=== PATIENT | female | born 1960 | race Caucasian/White ===

== ENCOUNTER 2018-01-03 21:08 | Emergency (ER) | payer BC ==
[~2018-01-03] VITALS: Ht 160 cm; Wt 78.0 kg
[~2018-01-03 21:08] MED LIST changes: -ATROPINE SULFATE 0.1 MG/ML 5ML SYR IV PRN; -DEXAMETHASONE SOD INJ 4 MG/ML VIAL ONE; -EpHEDrine SULFATE INJ 50 MG/ML AMP IV PRN; -FENTANYL CITRATE INJ 50 MCG/1 ML 2 ML VIAL IV PRN; -FENTANYL CITRATE INJ 50 MCG/1 ML 2 ML VIAL ONE; -KETOROLAC TROMETHAMINE 30 MG/ML VIAL ONE; -LIDOCAINE HCL 2% 2 ML VIAL (20MG/ML) ONE; -MIDAZOLAM HCL 1 MG/ML 2ML VIAL ONE; -ONDA4TAB65 PO; -ONDANSETRON INJ 2 MG/ML 2 ML VIAL ONE; -PROPOFOL IV EMULSION 10 MG/ML 20 ML VIAL ONE
[2018-01-03 21:10] VITALS: TEMP 36.6; Ht 160 cm; Wt 78.0 kg
[2018-01-03] MEDS ORDERED: TAMS0.4C38 PO (21:28)
[2018-01-03] MEDS ORDERED: OXYC1CAP5 PO (21:28)
[2018-01-03] MEDS ORDERED: MoRPHine SULFATE 4 MG/ML 1 ML CARP\\VIAL IV STA (21:37)
[2018-01-03] MEDS ORDERED: ONDANSETRON INJ 2 MG/ML 2 ML VIAL IV STA (21:37)
[2018-01-03] MEDS ORDERED: SODIUM CHLORIDE 0.9% 1000ML 1,000 ML IV STA (21:37)
[2018-01-03] MEDS ORDERED: KETOROLAC TROMETHAMINE 30 MG/ML VIAL IV STA (21:37)
--- NOTE | 2018-01-03 21:51 | EMERGENCY ROOM VISIT NOTE ---
History Report prepared by Magali: Parviz Quick Under the Supervision of: Dr. Stas Greco M.D. First contact with patient: 21:22 Chief Complaint: VOMITING Stated Complaint: NAUSEA, VOMITING, POST KIDNEY STONE PROCEDURE Nursing Triage Summary: Vomiting starting 1500, doesn't know how many times. Left kidney pain. Very tired. Had lithotripsy this morning at 0700. History of Present Illness The patient is a 57 year old white female with a past medical history of kidney stones and GERD who presents to the ED with a cc of constant left-sided flank pain beginning 6 hours ago. Patient states that she had left-side lithotripsy with Dr. Meléndez of urology done this morning. Positive symptoms include nausea , vomiting, and chills. Patient states that her last bowel movement was today. Patient states that she could not take her fever with a thermometer because it "causes her to vomit". Patient denies alcohol and drug use. Patient denies any recent trauma or travel. She denies being around anyone else that has been sick. Negative symptoms include coughs and urinary symptoms. Source of History: patient Onset: 6 hours ago Position: other (Left-sided flank) Timing: constant Modifying Factors (Relieving): other (None) Associated Symptoms: + chills, + nausea, + vomiting, No cough, No urinary symptoms Review of Systems See HPI for pertinent positives and negatives. A total of ten systems were reviewed and were otherwise negative. Past Medical & Surgical Medical Problems: (1) Anxiety State Nos (2) Depressive Disorder Nec (3) Esophageal Reflux Family History Diabetes mellitus Social History Smoking Status: Never Smoker Housing Status: lives with family Current/Historical Medications Scheduled Aspirin (Aspirin Chewable), 81 MG PO DAILY Atorvastatin (Lipitor), 40 MG PO QPM Omeprazole (Prilosec), 20 MG PO QAM Tamsulosin Hcl (Flomax), 0.4 MG PO DAILY Scheduled PRN Ondansetron Hcl (Zofran), 1 TAB PO Q6H PRN for Nausea Oxycodone Hcl (Oxycodone Hcl), 5 MG PO QID PRN for Pain Allergies Coded Allergies: No Known Allergies (Unverified , 01/03/18) Physical Exam Vital Signs Date Time Temp Pulse Resp B/P (MAP) Pulse Ox O2 Delivery O2 Flow Rate FiO2 5/12/18 00:00 148/90 01/03/18 23:48 72 20 98 01/03/18 23:30 145/79 01/03/18 23:18 75 16 99 01/03/18 23:00 141/91 01/03/18 22:54 141/73 01/03/18 22:48 60 12 99 01/03/18 22:43 56 18 100 01/03/18 22:13 74 18 92 01/03/18 22:08 82 18 01/03/18 21:38 65 100 Room Air 01/03/18 21:31 132/64 01/03/18 21:28 142/68 01/03/18 21:10 36.6 65 18 159/95 100 Room Air Physical Exam GENERAL: Awake, alert, ill-appearing, NAD HENT: Normocephalic, atraumatic. EYES: Normal conjunctiva. Sclera non-icteric. PERRL. No anisocoria. NECK: Supple. No nuchal rigidity. FROM. RESPIRATORY: CTAB, no rhonchi, wheezing, crackles CARDIAC: RRR, no MRG ABDOMEN: Soft, BS+, epigastric LUQ pain, left-sided flank pain, no lower abdominal pain, non-peritonitic MSK: No chest wall TTP, no LE edema NEURO: GCS 15, CN 2-12 intact, moves all 4s on command SKIN: No rash or jaundice noted. Medical Decision & Procedures ER Provider Diagnostic Interpretation: Radiology results as stated below per my review and radiologist interpretation: CHEST ONE VIEW PORTABLE HISTORY: Generalized abdominal pain. COMPARISON: Outside hospital abdomen CT 12/02/2017. FINDINGS: Moderate hiatus hernia, unchanged. The heart is top normal in size. Left basilar linear densities consistent with subsegmental atelectasis or scarring. The lungs are otherwise clear. No pleural effusions. No pneumothorax. IMPRESSION: No acute process. Electronically signed by: Giancarlo Vanessa M.D. 01/03/2018 10:18 PM ABDOMEN AND PELVIS CT WITHOUT CONTRAST CT DOSE: 770.62 mGy.cm HISTORY: Left-sided acute abdominal pain TECHNIQUE: Multiaxial CT images of the abdomen and pelvis were performed without contrast. A dose lowering technique was utilized adhering to the principles of ALARA. COMPARISON STUDY: Outside hospital abdominal CT 12/02/2017. FINDINGS: Small fat-containing left-sided Bochdalek hernia. A few bibasilar linear densities suggesting subsegmental atelectasis. Moderate hiatus hernia. No pneumoperitoneum. No pneumatosis. No acute fractures within the visualized osseous structures. The unenhanced liver, gallbladder, pancreas, spleen, and adrenal glands are unremarkable. There may be a punctate stone within the lower pole the right kidney. Multiple left renal calculi are again noted. Dominant stone within the lower pole measures 13 mm. A 4.6 cm hypodense lesion within the lower pole the left kidney remains unchanged. Stable hypodense lesion within the lower pole the right kidney which measures 3.3 cm. These renal lesions are incompletely characterized on this noncontrast study but favor cysts. There is mild left perinephric edema which is new from the prior study. There is also left periureteral edema. No bladder wall thickening. No right-sided hydronephrosis. There are multiple clustered stones seen within the left distal ureter starting at the level of the left iliac vessels and extending into the left ureterovesical junction. This results in moderate left hydronephrosis. No retroperitoneal lymphadenopathy. Normal caliber abdominal aorta. The uterus and adnexa are unremarkable. Suboptimal evaluation for bowel pathology due to the lack of intravenous and oral contrast. However, there is no definite bowel wall thickening or obstruction. Normal appendix. IMPRESSION: 1. Multiple clustered stones seen throughout the distal left ureter to the level of the left ureterovesical junction resulting in moderate left hydronephrosis. 2. Bilateral nephrolithiasis. 3. Moderate hiatus hernia. 4. Stable bilateral renal hypodense lesions. Electronically signed by: Giancarlo Vanessa M.D. 01/03/2018 11:15 PM Laboratory Results 01/03/18 21:50 Red Blood Count 4.76, Mean Corpuscular Volume 84.9, Mean Corpuscular Hemoglobin 28.8, Mean Corpuscular Hemoglobin Concent 33.9, Mean Platelet Volume 10.4, Neutrophils (%) (Auto) 83.8, Lymphocytes (%) (Auto) 8.9, Monocytes (%) (Auto) 6.9, Eosinophils (%) (Auto) 0.0, Basophils (%) (Auto) 0.1, Neutrophils # (Auto) 9.69, Lymphocytes # (Auto) 1.03, Monocytes # (Auto) 0.80, Eosinophils # (Auto) 0.00, Basophils # (Auto) 0.01 01/03/18 21:50 Test 01/03/18 21:25 01/03/18 21:50 Urine Color ORANGE Urine Appearance CLOUDY (CLEAR) Urine pH >= 9.0 (4.5-7.5) Urine Specific Advance 1.017 (1.000-1.030) Urine Protein 1+ (NEG) Urine Glucose (UA) NEG (NEG) Urine Ketones NEG (NEG) Urine Occult Blood 3+ (NEG) Urine Nitrite NEG (NEG) Urine Bilirubin NEG (NEG) Urine Urobilinogen NEG (NEG) Urine Leukocyte Esterase TRACE (NEG) Urine WBC (Auto) 10-30 /hpf (0-5) Urine RBC (Auto) >30 /hpf (0-4) Urine Hyaline Casts (Auto) 1-5 /lpf (0-5) Urine Epithelial Cells (Auto) 10-20 /lpf (0-5) Urine Bacteria (Auto) NEG (NEG) Urine Test NEG (NEG) White Blood Count 11.56 K/uL (4.8-10.8) Red Blood Count 4.76 M/uL (4.2-5.4) Hemoglobin 13.7 g/dL (12.0-16.0) Hematocrit 40.4 % (37-47) Mean Corpuscular Volume 84.9 fL (80-100) Mean Corpuscular Hemoglobin 28.8 pg (25-34) Mean Corpuscular Hemoglobin Concent 33.9 g/dl (32-36) Platelet Count 236 K/uL (130-400) Mean Platelet Volume 10.4 fL (7.4-10.4) Neutrophils (%) (Auto) 83.8 % Lymphocytes (%) (Auto) 8.9 % Monocytes (%) (Auto) 6.9 % Eosinophils (%) (Auto) 0.0 % Basophils (%) (Auto) 0.1 % Neutrophils # (Auto) 9.69 K/uL (1.4-6.5) Lymphocytes # (Auto) 1.03 K/uL (1.2-3.4) Monocytes # (Auto) 0.80 K/uL (0.11-0.59) Eosinophils # (Auto) 0.00 K/uL (0-0.5) Basophils # (Auto) 0.01 K/uL (0-0.2) RDW Standard Deviation 40.7 fL (36.4-46.3) RDW Coefficient of Variation 13.1 % (11.5-14.5) Immature Granulocyte % (Auto) 0.3 % Immature Granulocyte # (Auto) 0.03 K/uL (0.00-0.02) Anion Gap 9.0 mmol/L (3-11) Est Creatinine Clear Calc Drug Dose 58.7 ml/min Estimated GFR () 67.7 Estimated GFR (Non- 58.4 BUN/Creatinine Ratio 16.7 (10-20) Calcium Level 9.0 mg/dl (8.5-10.1) Total Bilirubin 0.6 mg/dl (0.2-1) Direct Bilirubin 0.2 mg/dl (0-0.2) Aspartate Amino Transf (AST/SGOT) 29 U/L (15-37) Alanine Aminotransferase (ALT/SGPT) 26 U/L (12-78) Alkaline Phosphatase 88 U/L (45-117) Total Protein 7.2 gm/dl (6.4-8.2) Albumin 4.0 gm/dl (3.4-5.0) Lipase 118 U/L (73-393) Laboratory results reviewed by me Medications Administered Medications (Trade) Dose Ordered Sig/Radha Route Start Time Stop Time Status Last Admin Dose Admin Sodium Chloride 1,000 ml @ 999 mls/hr Q1H1M STAT IV 01/03/18 21:37 01/03/18 22:37 DC 01/03/18 21:56 999 MLS/HR Ondansetron HCl (Zofran Inj) 4 mg NOW STAT IV 01/03/18 21:37 01/03/18 21:39 DC 01/03/18 21:56 4 MG Ketorolac Tromethamine (Toradol Inj) 30 mg NOW STAT IV 01/03/18 21:37 01/03/18 21:39 DC 01/03/18 21:59 30 MG Morphine Sulfate (MoRPHine SULFATE INJ) 4 mg NOW STAT IV 01/03/18 21:37 01/03/18 21:39 DC 01/03/18 22:00 4 MG Ondansetron HCl (ZOFRAN ODT 4MG Home Pack) 1 homepack UD ONCE PO 01/03/18 23:45 01/03/18 23:46 DC 01/04/18 00:12 1 HOMEPACK ECG Per My Interpretation Indication: vomiting Rate (beats per minute): 52 Rhythm: sinus bradycardia Findings: other (Normal axis and normal interval, no obvious STs changes or TWI ) ED Course 2121: The patient was evaluated in room B4. A complete history and physical exam was performed. 8: I reevaluated the patient. Discussed results and discharge instructions. She verbalized understanding and agreement. The patient is ready for discharge. Medical Decision Nursing notes reviewed. Ancillary studies and prior records reviewed. The patient is a 57 year old white female with a past medical history of kidney stones and GERD who presents to the ED with a cc of constant left-sided flank pain beginning 6 hours ago. The patient's presentation and history were concerning for renal colic, appendicitis, diverticulitis, mesenteric ischemia, aortic pathology, infections , inflammatory bowel disease, PUD, biliary pathology, UTI, as well as others were entertained. Patient was seen and evaluated the bedside. Patient did have a recent lithotripsy completed this morning with Dr. Meléndez. The patient was complaining of her amount of nausea and left-sided flank pain. Patient did have some chills but no true fever. Patient has not been able to keep anything down. Patient denies any recent antibiotic use, travel, sick contacts, ingestions, or stream or well water. Patient did have blood work completed along with urinalysis and CT of the abdomen pelvis. Patient CT shows that she does have multiple small ureteral calculi with obstructive changes are this is likely chronic as the patient required lithotripsy. The patient has normal kidney function patient does not have an elevated white blood cell count. Patient's urinalysis is negative for infection. She does have hematuria which is consistent with the patient's kidney stones. Patient was told of the results and the patient was feeling much improved. Patient was told to consider a bland diet and avoid spicy and citrus. Patient was told to take her pain medications with foods. Patient tolerated p.o. Patient was told to follow-up with urology as needed. Patient was given strict follow-up, discharge, and return precautions. All questions were answered. Patient was deemed suitable for outpatient follow-up at this time. Patient agreed with the plan of care and was safely discharged home. Medication Reconcilliation Current Medication List: was personally reviewed by me Blood Pressure Screening Patient's blood pressure: Normal blood pressure Blood pressure disposition: Did not require urgent referral Impression Primary Impression: Nausea & vomiting Additional Impression: H/O renal calculi Scribe Attestation The scribe's documentation has been prepared under my direction and personally reviewed by me in its entirety. I confirm that the note above accurately reflects all work, treatment, procedures, and medical decision making performed by me. Departure Information Dispostion Home / Self-Care Prescriptions Ondansetron Hcl (ZOFRAN) 4 Mg Tab 1 TAB PO Q6H Y for Nausea, #10 TAB 1 Refill Prov: Stas Greco M.D. 01/03/18 Referrals Rhonda Horvath D.O. (PCP) Patient Instructions ED Nausea Vomiting, My [facility] Additional Instructions Please return to the emergency department if you have worsening or recurrent symptoms not amenable to at-home treatment. Please call for a follow-up appointment with her primary care physician. Please take your medications as prescribed. If you have other concerns and/or complaints please feel free to also call your primary care physician's office or return the ED for further evaluation, management, and treatment. Consider a bland diet. Please avoid spicy and citrus. Consider taking Pepcid 20 mg twice daily. Take her pain medication with food. Please follow-up with your urologist as needed. You may take 800 mg Ibuprofen every 6 hours as needed for pain/fever with food unless told by your physician not to take NSAIDs. You may take tylenol 1000 mg every 6 hours as needed for pain/fever unless told by your physician to not take it or have liver problems. You may take motrin and tylenol separately or at the same time. Take your medications as prescribed. You have been examined and treated today on an emergency basis only. This is not a substitute for, or an effort to provide, complete comprehensive medical care. It is impossible to recognize and treat all injuries or illnesses in a single emergency department visit. It is therefore important that you follow up closely with [facility], your PCP, and/or your specialist(s). Call as soon as possible for an appointment. Thank you for your time and consideration. I look forward to speaking with you again soon. Please don't hesitate to call us if you have any questions. Problem Qualifiers Primary Impression: Nausea & vomiting Vomiting type: unspecified Vomiting Intractability: non-intractable Qualified Codes: R11.2 - Nausea with vomiting, unspecified
[2018-01-03 22:04] LABS: BASO % 0.1 %; BASO ABS # 0.01 K/uL (0-0.2); HEMATOCRIT 40.4 % (37-47); HEMOGLOBIN 13.7 g/dL (12.0-16.0); IG# 0.03 K/uL (0.00-0.02); LYMPH % 8.9 %; LYMPH ABS # 1.03 K/uL (1.2-3.4); MEAN CELL VOLUME 84.9 fL (80-100); MEAN CORPUSCULAR HEMOGLOBIN 28.8 pg (25-34); MEAN CORPUSCULAR HGB CONC 33.9 g/dl (32-36); MEAN PLATELET VOLUME 10.4 fL (7.4-10.4); MONO % 6.9 %; NEUT % 83.8 %; NEUT ABS # 9.69 K/uL (1.4-6.5); PLATELET COUNT 236 K/uL (130-400); RED CELL DISTRIBUTION WIDTH CV 13.1 % (11.5-14.5); RED CELL DISTRIBUTION WIDTH SD 40.7 fL (36.4-46.3); WHITE BLOOD COUNT 11.56 K/uL (4.8-10.8)
--- NOTE | 2018-01-03 22:19 | DIAGNOSTIC IMAGING REPORT ---
CHEST ONE VIEW PORTABLE HISTORY: Generalized abdominal pain. COMPARISON: Outside hospital abdomen CT 12/02/2017. FINDINGS: Moderate hiatus hernia, unchanged. The heart is top normal in size. Left basilar linear densities consistent with subsegmental atelectasis or scarring. The lungs are otherwise clear. No pleural effusions. No pneumothorax. IMPRESSION: No acute process. Electronically signed by: Giancarlo Vanessa M.D. 01/03/2018 10:18 PM Dictated Date/Time: 01/03/2018 10:16 PM
[2018-01-03 22:35] LABS: CREATININE 1.07 mg/dl (0.60-1.20); POTASSIUM 3.7 mmol/L (3.5-5.1)
[2018-01-03 22:38] LABS: TOTAL PROTEIN 7.2 gm/dl (6.4-8.2)
--- NOTE | 2018-01-03 23:16 | DIAGNOSTIC IMAGING REPORT ---
ABDOMEN AND PELVIS CT WITHOUT CONTRAST CT DOSE: 770.62 mGy.cm HISTORY: Left-sided acute abdominal pain TECHNIQUE: Multiaxial CT images of the abdomen and pelvis were performed without contrast. A dose lowering technique was utilized adhering to the principles of ALARA. COMPARISON STUDY: Outside hospital abdominal CT 12/02/2017. FINDINGS: Small fat-containing left-sided Bochdalek hernia. A few bibasilar linear densities suggesting subsegmental atelectasis. Moderate hiatus hernia. No pneumoperitoneum. No pneumatosis. No acute fractures within the visualized osseous structures. The unenhanced liver, gallbladder, pancreas, spleen, and adrenal glands are unremarkable. There may be a punctate stone within the lower pole the right kidney. Multiple left renal calculi are again noted. Dominant stone within the lower pole measures 13 mm. A 4.6 cm hypodense lesion within the lower pole the left kidney remains unchanged. Stable hypodense lesion within the lower pole the right kidney which measures 3.3 cm. These renal lesions are incompletely characterized on this noncontrast study but favor cysts. There is mild left perinephric edema which is new from the prior study. There is also left periureteral edema. No bladder wall thickening. No right-sided hydronephrosis. There are multiple clustered stones seen within the left distal ureter starting at the level of the left iliac vessels and extending into the left ureterovesical junction. This results in moderate left hydronephrosis. No retroperitoneal lymphadenopathy. Normal caliber abdominal aorta. The uterus and adnexa are unremarkable. Suboptimal evaluation for bowel pathology due to the lack of intravenous and oral contrast. However, there is no definite bowel wall thickening or obstruction. Normal appendix. IMPRESSION: 1. Multiple clustered stones seen throughout the distal left ureter to the level of the left ureterovesical junction resulting in moderate left hydronephrosis. 2. Bilateral nephrolithiasis. 3. Moderate hiatus hernia. 4. Stable bilateral renal hypodense lesions. Electronically signed by: Giancarlo Vanessa M.D. 01/03/2018 11:15 PM Dictated Date/Time: 01/03/2018 11:06 PM
[2018-01-03] MEDS ORDERED: ONDA4TAB65 PO (23:40)
[2018-01-03] MEDS ORDERED: ONDANSETRON HOME PACK 4MG OD TAB PO ONE (23:45)
[2018-01-03 23:48] VITALS: PULSE 72; O2SAT 98
[2018-01-04] VITALS: BP 148/90
== END 2018-01-04 00:18 | disposition home or self-care (01) ==
LOC: C.EDB 21:09
DX: R11.2 Nausea with vomiting, unspecified (principal); Z87.442 Personal history of urinary calculi; K21.9 Gastro-esophageal reflux disease without esophagitis; Z86.59 Personal history of other mental and behavioral disorders

== ENCOUNTER → 2018-01-03 | Day surgery (SDC) | payer BC ==
[2018-01-02 13:07] VITALS: Ht 160 cm; Wt 77.7 kg
[~2018-01-03] VITALS: Ht 160 cm; Wt 77.7 kg
[~2018-01-03] MED LIST: ASPCH81X PO; ATOR-24 PO; ATROPINE SULFATE 0.1 MG/ML 5ML SYR IV PRN; DEXAMETHASONE SOD INJ 4 MG/ML VIAL ONE; EpHEDrine SULFATE INJ 50 MG/ML AMP IV PRN; FENTANYL CITRATE INJ 50 MCG/1 ML 2 ML VIAL IV PRN; FENTANYL CITRATE INJ 50 MCG/1 ML 2 ML VIAL ONE; KETOROLAC TROMETHAMINE 30 MG/ML VIAL ONE; LIDOCAINE HCL 2% 2 ML VIAL (20MG/ML) ONE; MIDAZOLAM HCL 1 MG/ML 2ML VIAL ONE; ONDA4TAB65 PO; ONDANSETRON INJ 2 MG/ML 2 ML VIAL ONE; OXYC1CAP5 PO; PRLSR20 PO; PROPOFOL IV EMULSION 10 MG/ML 20 ML VIAL ONE; TAMS0.4C38 PO
--- NOTE | 2018-01-03 06:54 | History & Physical Bridge Note ---
H&P Re-Evaluation Bridge Note: I have examined the patient, reviewed the History & Physical and in the interval since the performance of the History & Physical I have noted the following changes of clinical significance: No changes noted
[2018-01-03] MEDS: LACTATED RINGER'S 1000ML 1,000 ML IV SCH ×2 (07:00→08:16)
--- NOTE | 2018-01-03 08:00 | [facility] Operative Report ---
Operative Report Operative Date January 03, 2018. Pre-Operative Diagnosis Left renal calculi Post-Operative Diagnosis Same as pre-op Procedure(s) Performed Left Extracorporeal Shock Wave Lithotripsy - Renal Surgeon Dr. Sue Meléndez Sausage Meat Trimmer Surgeon(s) None Estimated Blood Loss 0 mL Findings radio-opaque round stone in left renal pelvis Fluids 900mL Specimens None Drains None Anesthesia Type General Disposition yes Recovery Room / PACU Indications symptomatic 13mm left renla pelvis stone. Patient opted for eswl Description of Procedure Patient had general LMA anesthesia and was placed supine on the OR table with the left flank coupled to the lithotripsy head. The 13mm round left renal pelvis stone was positioned in 3 places in the focal zone. We delivered 200 shocks then observed a 2 minute pause. We then delivered a total of 2400 shocks gradually increasing power. The stone fragmented with a few visible fragments going superiorly and inferiorly into the kidney. We did reposition at the end to further target one of the larger fragments in the upper pole. She tolerated procedure well and was transferred in stable condition to recovery room. Plan: strain urine to collect stone fragments oral pain meds flomax kub in one month I attest to the content of the Intraoperative Record and any orders documented therein. Any exceptions are noted below.
--- NOTE | 2018-01-03 08:06 | Discharge Instructions ---
Discharge Instructions Date of Service January 03, 2018. Admission Reason for Admission: Stones Discharge Discharge Diagnosis / Problem: left kidney stone Discharge Goals Goal(s): Decrease discomfort, Improve disease control Activity Recommendations Activity Limitations: resume your previous activity Lifting Limitations: none Exercise/Sports Limitations: none May Resume Sexual Activity: when tolerated Shower/Bathe: no limitations Driving or Machine Use: resume 1 day after discharge . Instructions / Follow-Up Instructions / Follow-Up strain urine until you recover a few pieces take flomax daily until you are pain free and no longer passing fragments You will have mild to moderate left kidney pain and bloody urine for a few days use ibuprofen 600-800mg with food every 8 hours for mild to moderate pain use tylenol 650mg every 6 hours for mild to moderate pain. these 2 meds can be taken together add 5mg oxycodone every 6 hours for severe pain. this med will cause constipation so use a laxative with it. If a larger stone fragment gets stuck in ureter and you have uncontrollable nausea vomiting and pain, go to ER. Try not to have a CT scan done, a KUB xray or ultrasound would be a better option, if possible Current Hospital Diet Patient's current hospital diet: Discharge Diet Recommended Diet: Regular Diet Fluid Restriction: None Procedures Procedures Performed: Left Extracorporeal Shock Wave Lithotripsy - Renal Pending Studies Studies pending at discharge: no Medical Emergencies . Who to Call and When: Medical Emergencies: If at any time you feel your situation is an emergency, please call 911 immediately. . Non-Emergent Contact Non-Emergency issues call your: Urologist ([phone]) Call Non-Emergent contact if: temperature is above 100.5, your pain is not controlled . . "Provider Documentation" section prepared by Roseline Meléndez. . [place] Drug Monitoring Program Search Results: patient reviewed within database, no issues identified
[2018-01-03 08:54] VITALS: BP 148/78; PULSE 56; O2SAT 100
--- NOTE | 2018-01-03 08:59 | Anesthesiology Progress Note ---
Anesthesia Post Op Note Date & Time January 03, 2018 at 08:59 Vital Signs Pain Intensity: 0 Vital Signs Past 12 Hours Date Time Temp Pulse Resp B/P (MAP) Pulse Ox O2 Delivery O2 Flow Rate FiO2 01/03/18 08:54 56 16 148/78 (101) 100 Room Air 01/03/18 08:33 36.7 66 16 143/75 (97) 100 Room Air 01/03/18 08:26 36.7 64 16 114/79 99 Room Air 01/03/18 08:26 76 14 114/79 99 01/03/18 08:26 73 14 01/03/18 08:21 74 16 98 01/03/18 08:21 74 16 01/03/18 08:20 122/77 01/03/18 08:16 70 15 01/03/18 08:16 70 15 100 01/03/18 08:15 133/72 01/03/18 08:11 74 9 100 01/03/18 08:11 72 9 01/03/18 08:10 122/65 01/03/18 08:06 90 14 100 01/03/18 08:06 86 14 01/03/18 08:05 125/72 01/03/18 08:01 68 18 01/03/18 08:01 67 18 100 01/03/18 08:00 116/68 01/03/18 07:57 129/69 01/03/18 07:56 36.5 70 16 129/69 99 Mask 6 01/03/18 06:31 36.7 65 18 122/81 (95) 98 Room Air Notes Mental Status: alert / awake / arousable, participated in evaluation Pt Amnestic to Procedure: Yes Nausea / Vomiting: adequately controlled Pain: adequately controlled Airway Patency, RR, SpO2: stable & adequate BP & HR: stable & adequate Hydration State: stable & adequate Anesthetic Complications: no major complications apparent
== END | disposition home or self-care (01) ==
LOC: X.SURG 06:18
PROVIDERS: ATTEND Urology
DX: N20.0 Calculus of kidney (principal); Q21.1 Atrial septal defect; K44.9 Diaphragmatic hernia without obstruction or gangrene; K21.9 Gastro-esophageal reflux disease without esophagitis; E78.5 Hyperlipidemia, unspecified; E66.9 Obesity, unspecified; F43.9 Reaction to severe stress, unspecified; Z79.82 Long term (current) use of aspirin; Z87.442 Personal history of urinary calculi; Z87.891 Personal history of nicotine dependence